=== PATIENT | male | born 1985 | race Caucasian/White ===

== ENCOUNTER 2017-01-23 22:54 | Inpatient (IN) | payer SELFPAY ==
[~2017-01-23] VITALS: Ht 162.6 cm; Wt 65.6 kg
[~2017-01-23 22:54] MED LIST: PROM6.257 PO; Z.0.NO CURRENT MEDS; [UNRECOGNIZED DRUG - CODE] PO
[2017-01-23 22:56] VITALS: BP 157/92; PULSE 97; RESP 16; TEMP 98; O2SAT 99
[2017-01-23] MEDS ORDERED: PRIL20CA9 PO (23:14)
[2017-01-23] MEDS ORDERED: ALPR1TAB3 PO (23:14)
[2017-01-23] MEDS ORDERED: SODIUM CHLORIDE 0.9% FLUSH 10 ML FLUSH IVF PRN (23:15)
[2017-01-23 23:34] LABS: AUTOMATED NEUTROPHIL # 17.6 TH/MM3 (1.8-7.7); BASOPHIL # 0.1 TH/MM3 (0-0.2); BASOPHIL % 0.3 % (0.0-2.0); EOSINOPHIL % 0.1 % (0.0-4.0); HEMATOCRIT 40.3 % (39.0-51.0); HEMO FLAGS DIFF FINAL; LYMPH % 4.3 % (9.0-44.0); LYMPHOCYTE # 0.8 TH/MM3 (1.0-4.8); MEAN CELL VOLUME 89.9 FL (80.0-100.0); MEAN CORPUSCULAR HEMOGLOBIN 31.9 PG (27.0-34.0); MEAN CORPUSCULAR HGB CONC 35.5 % (32.0-36.0); MONO % 4.7 % (0.0-8.0); NEUT % 90.6 % (16.0-70.0); PLATELET COUNT 261 TH/MM3 (150-450); RED BLOOD COUNT 4.48 MIL/MM3 (4.50-5.90); RED CELL DISTRIBUTION WIDTH 13.2 % (11.6-17.2); WHITE BLOOD COUNT 19.5 TH/MM3 (4.0-11.0)
[2017-01-23 23:43] LABS: APTT (PATIENT) 28.2 SEC (24.3-30.1); INTERNATIONAL NORMALIZED RATIO 0.9 RATIO; PROTHROMBIN TIME - PATIENT 10.4 SEC (9.8-11.6)
[2017-01-23 23:47] LABS: ALKALINE PHOSPHATASE 80 U/L (45-117); TOTAL BILIRUBIN ADULT 0.3 MG/DL (0.2-1.0)
[2017-01-23 23:52] LABS: ALT (GPT) 32 U/L (12-78); ANION GAP 9 MEQ/L (5-15); AST (GOT) 40 U/L (15-37); BICARBONATE 25.9 MEQ/L (21.0-32.0); BLOOD UREA NITROGEN 9 MG/DL (7-18); CHLORIDE 98 MEQ/L (98-107); GLOMERULAR FILTRATION RATE 133 ML/MIN (>89); POTASSIUM 3.9 MEQ/L (3.5-5.1); SODIUM (NA) 133 MEQ/L (136-145)
[2017-01-24] VITALS (7 sets, daily range): BP systolic 147–160; BP diastolic 83–97; PULSE 77–104; RESP 16–19; TEMP 98–99.7; O2SAT 93–99
--- NOTE | 2017-01-24 00:09 | RADRPT ---
EXAM DATE/TIME: 01/23/2017 23:32 [facility] COMPARISON: No previous studies available for comparison. INDICATIONS : Shortness of breath. MEDICAL HISTORY : None. SURGICAL HISTORY : None. ENCOUNTER: Initial ACUITY: 1 day PAIN SCORE: 0/10 LOCATION: Bilateral chest FINDINGS: A single view of the chest demonstrates the lungs to be symmetrically aerated without evidence of mas s, infiltrate or effusion. The cardiomediastinal contours are unremarkable. Osseous structures are intact. CONCLUSION: No acute disease. Nathen Rodney MD on January 24, 2017 at 0:07 Board Certified Radiologist. This report was verified electronically.
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
[2017-01-24] MEDS ORDERED: MORPHINE SULFATE 8 MG/ML INJ IV PUSH ONE (00:45)
[2017-01-24] MEDS ORDERED: LIDOCAINE HCL 2% 50 ML VIAL ONE (01:05)
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
[2017-01-24] MEDS ORDERED: ONDANSETRON HCL 4 MG/2 ML VIAL ONE (01:14)
[2017-01-24] MEDS ORDERED: MORPHINE SULFATE 4 MG/ML INJ IV PUSH PRN (01:45)
[2017-01-24] MEDS ORDERED: NALOXONE HCL 0.4 MG/ML AMP IV PRN (01:45)
[2017-01-24] MEDS ORDERED: ONDANSETRON HCL 4 MG/2 ML VIAL IVP PRN (01:45)
[2017-01-24] MEDS ORDERED: NEOMYCIN/POLYMYXIN 1 ML G.U. IRRIGANT TOPICAL ONE (02:05)
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
[2017-01-24] MEDS ORDERED: DO NOT ADM ANY ANTICOAGULANT DRUGS PRN (04:00)
[2017-01-24] MEDS ORDERED: *MEPERIDINE 25 MG INJ VIAL PERIprocedural Use ONLY ONE (04:06)
[2017-01-24] MEDS: SODIUM CHLOR 0.9% 1000 ML INJ 1,000 ML IV SCH ×2 (04:10→11:43)
[2017-01-24] MEDS ORDERED: MIDAZOLAM HCL 2 MG/2 ML VIAL ONE (04:12)
[2017-01-24] MEDS ORDERED: fentaNYL CITRATE 250 MCG/5 ML AMP ONE (04:13)
[2017-01-24] MEDS ORDERED: ONDANSETRON HCL 4 MG/2 ML VIAL IV PUSH ONE ×2 (04:15→12:00)
[2017-01-24] MEDS ORDERED: *morphine SULFATE 8 MG/ML PERIprocedure ONLY ONE (04:39)
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
[2017-01-24] MEDS: PANTOPRAZOLE SOD 20 MG DELAYED RELEASE TAB PO SCH ×2 (08:26→20:01)
[2017-01-24] MEDS: HYDROmorphone HCL PF 1 MG/ML VIAL IV PUSH PRN ×5 (08:26→23:19)
[2017-01-24] MEDS: SODIUM CHLORIDE 0.9% FLUSH 10 ML FLUSH IV FLUSH SCH ×2 (08:26→20:01)
--- NOTE | 2017-01-24 09:52 | PD.ORT.PN ---
Subjective Subjective Remarks Patient reports pain controlled. Denies paresthesias in recovery room Objective Vitals Vital Signs Date Time Temp Pulse Resp B/P Pulse Ox O2 Delivery O2 Flow Rate FiO2 01/24/17 08:38 Room Air 01/24/17 08:00 98.5 86 19 147/95 99 01/24/17 05:00 Nasal Cannula 2.00 01/24/17 05:00 98.0 94 16 158/97 99 01/24/17 04:45 102 16 167/94 95 Nasal Cannula 2 01/24/17 04:30 108 20 163/87 95 Room Air 01/24/17 04:15 101 20 170/89 98 Room Air 01/24/17 04:05 98.5 113 12 148/90 99 Nasal Cannula 2 01/23/17 23:22 100 Room Air 01/23/17 22:56 98.0 97 16 157/92 99 I/O 01/23/17 01/23/17 01/23/17 01/24/17 01/24/17 01/24/17 07:00 15:00 23:00 07:00 15:00 23:00 Intake Total 820 ml Output Total 65 ml Balance 755 ml Intake Oral 120 ml Other 700 ml Output Estimated Blood Loss 25 ml Other 40 ml # Voids 0 # Bowel Movements 0 Result Diagram: 01/23/17 2320 01/23/17 2320 Other Results Laboratory Tests Test 01/23/17 23:20 Prothrombin Time 10.4 SEC (9.8-11.6) Prothromb Time International 0.9 RATIO Ratio Imaging Last 24 hours Impressions Radius/Ulna X-Ray 01/24/17 0000 Signed Impressions: Service Date/Time: Tuesday, January 24, 2017 00:52 - CONCLUSION: Soft tissue gas with no acute fracture or malalignment in the forearm. Please see hand exam for further details. Nathen Rodney MD Chest X-Ray 01/23/17 2312 Signed Impressions: Service Date/Time: Monday, January 23, 2017 23:32 - CONCLUSION: No acute disease. Nathen Rodney MD Objective Remarks VAC holding suction, sitlt m/ur, 2+ radial pulse, dressing in place Assessment & Plan Assessment and Plan 31yM s/p concrete nail gun injury at home with impending compartment syndrome POD0 s/p I&D left hand, removal foreign body, fasciotomies left hand, carpal tunnel release, repair flexor tendon small finger and ring finger -VAC 125mmHg, plan to return to OR Sunday for repeat I&D possible VAC change, possible closure -NWB left hand, CT left wrist before sunday -will continue to follow closely Dee Brooks MD January 24, 2017 09:52
--- NOTE | 2017-01-24 10:26 | EKG ---
Date Performed: 01/23/2017 Time Performed: 23:17:39 PTAGE: 31 years EKG: Sinus rhythm WITH SINUS ARRHYTHMIA MODERATE INTRAVENTRICULAR CONDUCTION DELAY BORDERLINE ECG PREVIOUS TRACING : 10/10/2011 14.21 DOCTOR: Abhilash Castillo Interpretating Date/Time 01/24/2017 10:21:18
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
[2017-01-24] MEDS ORDERED: LACTATED RINGER'S 1000 ML INJ 1,000 ML IV ONE (12:00)
[2017-01-24] MEDS ORDERED: PROPOFOL 200 MG/20 ML AMP IV ONE (12:00)
[2017-01-24] MEDS ORDERED: ePHEDrine/NS 25 MG/5 ML SYR IV ONE (12:00)
[2017-01-24] MEDS: SODIUM CHLORIDE 0.9% FLUSH 10 ML FLUSH IV FLUSH PRN ×2 (12:51→16:31)
[2017-01-24] MEDS: ALPRAZolam 1 MG TAB PO PRN ×2 (14:30→21:03)
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
[2017-01-25] VITALS (7 sets, daily range): BP systolic 136–153; BP diastolic 79–91; PULSE 92–108; RESP 16–18; TEMP 95.6–99.6; O2SAT 95–99
[2017-01-25] MEDS ORDERED: HYDROmorphone HCL PF 1 MG/ML VIAL IV PUSH ONE (01:00)
[2017-01-25] MEDS: HYDROmorphone HCL PF 1 MG/ML VIAL IV PUSH PRN ×3 (04:00→15:48)
[2017-01-25] MEDS: ALPRAZolam 1 MG TAB PO PRN ×2 (04:05→15:45)
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
[2017-01-25 07:41] LABS: AUTOMATED NEUTROPHIL # 11.2 TH/MM3 (1.8-7.7); BASOPHIL # 0.1 TH/MM3 (0-0.2); BASOPHIL % 0.8 % (0.0-2.0); EOSINOPHIL % 0.3 % (0.0-4.0); HEMATOCRIT 44.4 % (39.0-51.0); LYMPH % 14.2 % (9.0-44.0); LYMPHOCYTE # 2.3 TH/MM3 (1.0-4.8); MEAN CELL VOLUME 92.4 FL (80.0-100.0); MEAN CORPUSCULAR HEMOGLOBIN 30.9 PG (27.0-34.0); MEAN CORPUSCULAR HGB CONC 33.4 % (32.0-36.0); MONO % 14.3 % (0.0-8.0); NEUT % 70.4 % (16.0-70.0); PLATELET COUNT 248 TH/MM3 (150-450); RED BLOOD COUNT 4.81 MIL/MM3 (4.50-5.90); RED CELL DISTRIBUTION WIDTH 13.7 % (11.6-17.2); WHITE BLOOD COUNT 15.9 TH/MM3 (4.0-11.0)
[2017-01-25] MEDS: SODIUM CHLOR 0.9% 1000 ML INJ 1,000 ML IV SCH ×3 (07:43→17:43)
[2017-01-25 07:46] LABS: HEMO FLAGS AUTO DIFF
[2017-01-25 07:58] LABS: BICARBONATE 30.3 MEQ/L (21.0-32.0); POTASSIUM 3.6 MEQ/L (3.5-5.1)
[2017-01-25] MEDS: PANTOPRAZOLE SOD 20 MG DELAYED RELEASE TAB PO SCH ×2 (08:18→22:27)
[2017-01-25 08:40] LABS: BANDS 3 % (0-6); NEUTROPHIL # MANUAL DIFF 11.3 TH/MM3 (1.8-7.7); POLYS (SEG NEUTROPHILS) 68 % (16-70); WBC DIFF SAMPLE 100
[2017-01-25 08:41] LABS: PLATELET ESTIMATE SMEAR NORMAL (NORMAL); PLATELET MORPHOLOGY NORMAL (NORMAL); SCAN/DIFF FINAL DIFF MANUAL
[2017-01-25] MEDS: SODIUM CHLORIDE 0.9% FLUSH 10 ML FLUSH IV FLUSH SCH ×2 (09:00→22:28)
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
[2017-01-25] MEDS: ceFAZolin 2 GM PREMIX 50 ML IV SCH ×2 (11:41→22:26)
[2017-01-26] MEDS: ceFAZolin 2 GM PREMIX 50 ML IV SCH ×3 (03:47→20:20)
[2017-01-26] MEDS: SODIUM CHLOR 0.9% 1000 ML INJ 1,000 ML IV SCH ×2 (03:55→13:43)
[2017-01-26 04:30] VITALS: BP 163/97; PULSE 105; RESP 16; TEMP 98; O2SAT 98
[2017-01-26] MEDS ORDERED: CHLORHEXIDINE GLUCONATE 2 % 1 PACK (2 CLOTHS) TOPICAL PRN (06:15)
[2017-01-26] MEDS ORDERED: INSULIN HUMAN REGULAR 1,000 UNITS/10 ML VIAL SQ PRN (06:15)
[2017-01-26] MEDS ORDERED: SODIUM CHLORID 0.9% 500 ML IV PRN (06:15)
[2017-01-26] MEDS ORDERED: LACTATED RINGER'S 1000 ML IV PRN (06:15)
[2017-01-26] MEDS ORDERED: POVIDONE IODINE 5% (ANTISEPSIS KIT) 4 APPLICATIONS EACH NARE PRN (06:15)
[2017-01-26 07:24] LABS: AUTOMATED NEUTROPHIL # 13.1 TH/MM3 (1.8-7.7); BASOPHIL # 0.1 TH/MM3 (0-0.2); BASOPHIL % 0.5 % (0.0-2.0); EOSINOPHIL # 0.1 TH/MM3 (0-0.4); EOSINOPHIL % 0.8 % (0.0-4.0); HEMATOCRIT 46.4 % (39.0-51.0); HEMO FLAGS DIFF FINAL; LYMPH % 10.2 % (9.0-44.0); LYMPHOCYTE # 1.7 TH/MM3 (1.0-4.8); MEAN CELL VOLUME 91.8 FL (80.0-100.0); MEAN CORPUSCULAR HEMOGLOBIN 30.6 PG (27.0-34.0); MEAN CORPUSCULAR HGB CONC 33.4 % (32.0-36.0); MONO % 12.1 % (0.0-8.0); NEUT % 76.4 % (16.0-70.0); PLATELET COUNT 263 TH/MM3 (150-450); RED BLOOD COUNT 5.05 MIL/MM3 (4.50-5.90); RED CELL DISTRIBUTION WIDTH 13.3 % (11.6-17.2); WHITE BLOOD COUNT 17.1 TH/MM3 (4.0-11.0)
[2017-01-26 07:57] VITALS: BP 132/83; PULSE 98; RESP 16; TEMP 98.4; O2SAT 98
[2017-01-26] MEDS: PANTOPRAZOLE SOD 20 MG DELAYED RELEASE TAB PO SCH ×2 (08:46→20:19)
[2017-01-26] MEDS: SODIUM CHLORIDE 0.9% FLUSH 10 ML FLUSH IV FLUSH SCH ×2 (09:00→20:20)
[2017-01-26] MEDS ORDERED: PROPOFOL 200 MG/20 ML AMP IV ONE (12:00)
[2017-01-26] MEDS ORDERED: KETOROLAC TROMETHAMINE 60 MG/2 ML (IM) VIAL IM ONE (12:00)
[2017-01-26] MEDS ORDERED: ONDANSETRON HCL 4 MG/2 ML VIAL IV PUSH ONE (12:00)
[2017-01-26 12:35] VITALS: BP 136/79; PULSE 91; RESP 18; TEMP 98.3; O2SAT 98
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
[2017-01-26] MEDS ORDERED: fentaNYL CITRATE 250 MCG/5 ML AMP ONE (14:49)
[2017-01-26] MEDS ORDERED: FAMOTIDINE 20 MG/2 ML VIAL ONE (14:54)
[2017-01-26] MEDS ORDERED: LIDOCAINE HCL 2% 50 ML VIAL ONE (14:55)
[2017-01-26] MEDS ORDERED: MIDAZOLAM HCL 2 MG/2 ML VIAL ONE (14:58)
[2017-01-26] MEDS ORDERED: DEXAMETHASONE SOD PHOS 4 MG/ML VIAL ONE (14:58)
[2017-01-26] MEDS ORDERED: DO NOT ADM ANY ANTICOAGULANT DRUGS PRN (16:48)
[2017-01-26] MEDS ORDERED: *MEPERIDINE 25 MG INJ VIAL PERIprocedural Use ONLY ONE (16:48)
--- NOTE | 2017-01-26 16:57 | PD.ORT.PN ---
Subjective Subjective Remarks Patient reports pain controlled. Denies paresthesias in recovery room Objective Vitals Vital Signs Date Time Temp Pulse Resp B/P Pulse Ox O2 Delivery O2 Flow Rate FiO2 01/26/17 12:35 98.3 91 18 136/79 98 01/26/17 07:57 98.4 98 16 132/83 98 01/26/17 05:49 18 01/26/17 04:30 98.0 105 16 163/97 98 01/26/17 01:32 Room Air 01/25/17 23:30 98.1 93 16 140/91 98 01/25/17 20:15 99.3 108 17 138/90 99 I/O 01/25/17 01/25/17 01/25/17 01/26/17 01/26/17 01/26/17 07:00 15:00 23:00 07:00 15:00 23:00 Intake Total 480 ml 860 ml 480 ml 125 ml 0 ml Output Total 650 ml 25 ml 25 ml Balance -170 ml 860 ml 455 ml 100 ml 0 ml Intake Oral 480 ml 860 ml 480 ml 0 ml 0 ml IV Total 125 ml Output Urine Total 650 ml Drainage Total 25 ml 25 ml # Voids 5 2 2 4 # Bowel Movements 0 0 Result Diagram: 01/26/17 0655 01/25/17 0713 Imaging Last 24 hours Impressions Radius/Ulna X-Ray 01/24/17 0000 Signed Impressions: Service Date/Time: Tuesday, January 24, 2017 00:52 - CONCLUSION: Soft tissue gas with no acute fracture or malalignment in the forearm. Please see hand exam for further details. Nathen Rodney MD Chest X-Ray 01/23/17 231 Signed Impressions: Service Date/Time: Monday, January 23, 2017 23:32 - CONCLUSION: No acute disease. Nathen Rodney MD Objective Remarks VAC holding suction, dorsal blocking splint in place, sitlt m/ur, 2+ radial pulse, dressing in place Assessment & Plan Assessment and Plan 31yM s/p concrete nail gun injury at home with impending compartment syndrome POD2 s/p I&D left hand, removal foreign body, fasciotomies left hand, carpal tunnel release, repair flexor tendon small finger and ring finger -POD0 s/p repeat I&D, partial closure volar wound, repeat VAC to dorsal wound and partial volar wound -VAC 125mmHg, plan to return to OR Sunday for repeat I&D possible VAC change, possible closure, possible skin graft -NWB left hand, elevate left hand to IV pole as much as possible with NO ROM ring and small fingers -will continue to follow closely Dee Brooks MD January 26, 2017 16:57
[2017-01-26] MEDS ORDERED: *morphine SULFATE 8 MG/ML PERIprocedure ONLY ONE (17:21)
[2017-01-26] MEDS: ALPRAZolam 1 MG TAB PO PRN (17:45)
[2017-01-26] MEDS: HYDROmorphone HCL PF 1 MG/ML VIAL IV PUSH PRN ×2 (18:15→21:54)
[2017-01-26 19:00] VITALS: BP_SYST 130; BP_SYST 136; BP_DIAS 62; BP_DIAS 88; PULSE 110; PULSE 61; RESP 17; TEMP 96.3; TEMP 98.6; O2SAT 100; O2SAT 96
[2017-01-26 23:48] VITALS: BP 120/75; PULSE 81; RESP 16; TEMP 96; O2SAT 96
[2017-01-27] MEDS: ceFAZolin 2 GM PREMIX 50 ML IV SCH ×3 (04:31→20:12)
[2017-01-27 08:00] VITALS: BP 143/76; PULSE 78; RESP 18; TEMP 97.5; O2SAT 98
[2017-01-27 08:45] VITALS: O2SAT 98
[2017-01-27] MEDS: ALPRAZolam 1 MG TAB PO PRN ×2 (10:06→23:09)
[2017-01-27] MEDS: PANTOPRAZOLE SOD 20 MG DELAYED RELEASE TAB PO SCH ×2 (10:06→20:11)
[2017-01-27] MEDS: HYDROmorphone HCL PF 1 MG/ML VIAL IV PUSH PRN ×3 (10:07→20:21)
[2017-01-27] MEDS: SODIUM CHLORIDE 0.9% FLUSH 10 ML FLUSH IV FLUSH SCH ×2 (10:17→20:12)
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
[2017-01-27] MEDS: SODIUM CHLOR 0.9% 1000 ML INJ 1,000 ML IV SCH ×2 (11:40→19:43)
[2017-01-27 12:00] VITALS: BP 124/58; PULSE 69; RESP 18; TEMP 97.4; O2SAT 98
[2017-01-27] MEDS: SODIUM CHLORIDE 0.9% FLUSH 10 ML FLUSH IV FLUSH PRN (14:29)
[2017-01-27 16:00] VITALS: BP 148/82; PULSE 75; RESP 18; TEMP 96.4; O2SAT 100
[2017-01-27 20:00] VITALS: BP 139/75; PULSE 95; RESP 20; TEMP 97.7; O2SAT 100
[2017-01-28] VITALS: BP 121/85; PULSE 97; RESP 22; TEMP 98.1; O2SAT 100
[2017-01-28 04:00] VITALS: BP 141/88; PULSE 67; RESP 18; TEMP 96.5; O2SAT 100
[2017-01-28] MEDS: ceFAZolin 2 GM PREMIX 50 ML IV SCH ×3 (04:02→20:20)
[2017-01-28] MEDS: HYDROmorphone HCL PF 1 MG/ML VIAL IV PUSH PRN ×5 (04:12→22:28)
[2017-01-28] MEDS: SODIUM CHLOR 0.9% 1000 ML INJ 1,000 ML IV SCH ×2 (05:04→15:43)
[2017-01-28] MEDS: ALPRAZolam 1 MG TAB PO PRN ×3 (05:26→20:26)
[2017-01-28 06:46] LABS: AUTOMATED NEUTROPHIL # 7.3 TH/MM3 (1.8-7.7); BASOPHIL # 0.1 TH/MM3 (0-0.2); BASOPHIL % 0.5 % (0.0-2.0); EOSINOPHIL # 0.3 TH/MM3 (0-0.4); EOSINOPHIL % 2.1 % (0.0-4.0); HEMATOCRIT 40.9 % (39.0-51.0); HEMO FLAGS DIFF FINAL; LYMPH % 27.4 % (9.0-44.0); LYMPHOCYTE # 3.3 TH/MM3 (1.0-4.8); MEAN CELL VOLUME 91.4 FL (80.0-100.0); MEAN CORPUSCULAR HEMOGLOBIN 30.4 PG (27.0-34.0); MEAN CORPUSCULAR HGB CONC 33.3 % (32.0-36.0); MONO % 9.5 % (0.0-8.0); NEUT % 60.5 % (16.0-70.0); PLATELET COUNT 309 TH/MM3 (150-450); RED BLOOD COUNT 4.48 MIL/MM3 (4.50-5.90); RED CELL DISTRIBUTION WIDTH 13.2 % (11.6-17.2)
[2017-01-28 08:00] VITALS: BP 125/71; PULSE 74; RESP 18; TEMP 96.5; O2SAT 97
[2017-01-28] MEDS: PANTOPRAZOLE SOD 20 MG DELAYED RELEASE TAB PO SCH ×2 (08:44→20:26)
[2017-01-28] MEDS: SODIUM CHLORIDE 0.9% FLUSH 10 ML FLUSH IV FLUSH SCH ×2 (08:45→20:27)
[2017-01-28 12:00] VITALS: BP 136/78; PULSE 72; RESP 19; TEMP 97.6; O2SAT 100
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
[2017-01-28 16:00] VITALS: BP 138/83; PULSE 72; RESP 18; TEMP 97.8; O2SAT 100
[2017-01-28 20:00] VITALS: BP 126/74; PULSE 76; RESP 18; TEMP 96.4; O2SAT 100
[2017-01-29] VITALS: BP 136/74; PULSE 81; RESP 20; TEMP 96.6; O2SAT 100
[2017-01-29] MEDS: SODIUM CHLOR 0.9% 1000 ML INJ 1,000 ML IV SCH ×3 (01:43→19:38)
[2017-01-29] MEDS: HYDROmorphone HCL PF 1 MG/ML VIAL IV PUSH PRN ×6 (03:13→22:55)
[2017-01-29 04:00] VITALS: BP 127/72; PULSE 73; RESP 18; TEMP 96.9; O2SAT 99
[2017-01-29] MEDS: ceFAZolin 2 GM PREMIX 50 ML IV SCH ×3 (04:29→19:38)
[2017-01-29 07:02] VITALS: BP 113/88; PULSE 70; RESP 17; TEMP 97.3; O2SAT 99
[2017-01-29] MEDS: PANTOPRAZOLE SOD 20 MG DELAYED RELEASE TAB PO SCH ×2 (07:31→19:38)
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
[2017-01-29] MEDS: SODIUM CHLORIDE 0.9% FLUSH 10 ML FLUSH IV FLUSH SCH ×2 (09:00→19:38)
[2017-01-29 11:20] VITALS: BP 134/77; PULSE 79; RESP 17; TEMP 97.4; O2SAT 99
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
[2017-01-29 15:43] VITALS: BP 133/69; PULSE 77; RESP 17; TEMP 95.7; O2SAT 98
[2017-01-29] MEDS: ALPRAZolam 1 MG TAB PO PRN (18:44)
[2017-01-29 20:00] VITALS: BP 128/83; PULSE 93; RESP 16; TEMP 97.6; O2SAT 99
[2017-01-30] VITALS: BP 151/86; PULSE 82; RESP 17; TEMP 98.6; O2SAT 99
[2017-01-30] MEDS ORDERED: INSULIN HUMAN REGULAR 1,000 UNITS/10 ML VIAL SQ PRN (00:30)
[2017-01-30] MEDS ORDERED: POVIDONE IODINE 5% (ANTISEPSIS KIT) 4 APPLICATIONS EACH NARE PRN (00:30)
[2017-01-30] MEDS ORDERED: LACTATED RINGER'S 1000 ML IV PRN (00:30)
[2017-01-30] MEDS ORDERED: METOPROLOL TARTRATE 25 MG TAB PO PRN (00:30)
[2017-01-30] MEDS ORDERED: CHLORHEXIDINE GLUCONATE 2 % 1 PACK (2 CLOTHS) TOPICAL PRN (00:30)
[2017-01-30] MEDS ORDERED: SODIUM CHLORID 0.9% 500 ML IV PRN (00:30)
[2017-01-30] MEDS: HYDROmorphone HCL PF 1 MG/ML VIAL IV PUSH PRN ×6 (01:31→23:48)
[2017-01-30 04:00] VITALS: BP 131/81; PULSE 64; RESP 16; TEMP 97.2; O2SAT 97
[2017-01-30] MEDS: ceFAZolin 2 GM PREMIX 50 ML IV SCH ×3 (04:53→19:49)
[2017-01-30] MEDS: SODIUM CHLOR 0.9% 1000 ML INJ 1,000 ML IV SCH ×2 (04:54→17:43)
[2017-01-30] MEDS ORDERED: PROPOFOL 200 MG/20 ML AMP IV ONE (07:37)
[2017-01-30] MEDS ORDERED: KETOROLAC TROMETHAMINE 60 MG/2 ML (IM) VIAL IM ONE (07:37)
[2017-01-30] MEDS ORDERED: ONDANSETRON HCL 4 MG/2 ML VIAL IV PUSH ONE (07:37)
[2017-01-30 08:00] VITALS: BP 131/90; PULSE 77; RESP 18; TEMP 98.7; O2SAT 99
[2017-01-30] MEDS: SODIUM CHLORIDE 0.9% FLUSH 10 ML FLUSH IV FLUSH SCH ×2 (08:19→19:49)
[2017-01-30] MEDS: PANTOPRAZOLE SOD 20 MG DELAYED RELEASE TAB PO SCH ×2 (08:21→19:49)
[2017-01-30] MEDS ORDERED: GENTAMICIN SULFATE 80 MG/2 ML VIAL ONE (08:21)
[2017-01-30] MEDS ORDERED: LIDOCAINE HCL 2% 50 ML VIAL ONE (08:21)
[2017-01-30] MEDS ORDERED: fentaNYL CITRATE 250 MCG/5 ML AMP ONE (09:11)
[2017-01-30] MEDS ORDERED: FAMOTIDINE 20 MG/2 ML VIAL ONE (09:11)
[2017-01-30] MEDS ORDERED: MIDAZOLAM HCL 2 MG/2 ML VIAL ONE (09:11)
[2017-01-30] MEDS ORDERED: NEOMYCIN/POLYMYXIN 1 ML G.U. IRRIGANT TOPICAL ONE (10:20)
[2017-01-30] MEDS ORDERED: DO NOT ADM ANY ANTICOAGULANT DRUGS PRN (11:18)
[2017-01-30] MEDS ORDERED: *MEPERIDINE 25 MG INJ VIAL PERIprocedural Use ONLY ONE (11:19)
[2017-01-30] MEDS ORDERED: *HYDROmorphone PF 1 MG VIAL PERIprocedural Use ONLY ONE (11:26)
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
[2017-01-30 11:50] VITALS: BP 146/87; PULSE 83; RESP 18; TEMP 97; O2SAT 96
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
[2017-01-30] MEDS ORDERED: PILL SPLITTER OTHER PRN (15:45)
[2017-01-30 16:00] VITALS: BP 142/72; PULSE 78; RESP 19; TEMP 98.5; O2SAT 97
[2017-01-30] MEDS: ALPRAZolam 1 MG TAB PO PRN (17:33)
[2017-01-30 20:00] VITALS: BP 145/78; PULSE 93; RESP 16; TEMP 97.8; O2SAT 99
[2017-01-31] VITALS (7 sets, daily range): BP systolic 125–148; BP diastolic 62–79; PULSE 60–99; RESP 16–18; TEMP 96.8–99; O2SAT 97–100
[2017-01-31] MEDS: SODIUM CHLOR 0.9% 1000 ML INJ 1,000 ML IV SCH ×3 (01:37→23:43)
[2017-01-31] MEDS: ceFAZolin 2 GM PREMIX 50 ML IV SCH ×3 (04:36→19:47)
[2017-01-31 07:00] LABS: AUTOMATED NEUTROPHIL # 14.3 TH/MM3 (1.8-7.7); BASOPHIL # 0.1 TH/MM3 (0-0.2); BASOPHIL % 0.6 % (0.0-2.0); EOSINOPHIL # 0.1 TH/MM3 (0-0.4); EOSINOPHIL % 0.8 % (0.0-4.0); HEMATOCRIT 40.4 % (39.0-51.0); HEMO FLAGS DIFF FINAL; LYMPH % 11.7 % (9.0-44.0); LYMPHOCYTE # 2.1 TH/MM3 (1.0-4.8); MEAN CELL VOLUME 91.1 FL (80.0-100.0); MEAN CORPUSCULAR HEMOGLOBIN 30.7 PG (27.0-34.0); MEAN CORPUSCULAR HGB CONC 33.7 % (32.0-36.0); MONO % 7.6 % (0.0-8.0); NEUT % 79.3 % (16.0-70.0); PLATELET COUNT 362 TH/MM3 (150-450); RED BLOOD COUNT 4.43 MIL/MM3 (4.50-5.90); RED CELL DISTRIBUTION WIDTH 12.8 % (11.6-17.2)
[2017-01-31] MEDS: PANTOPRAZOLE SOD 20 MG DELAYED RELEASE TAB PO SCH ×2 (09:07→19:47)
[2017-01-31] MEDS: HYDROmorphone HCL PF 1 MG/ML VIAL IV PUSH PRN ×4 (09:08→19:48)
[2017-01-31] MEDS: SODIUM CHLORIDE 0.9% FLUSH 10 ML FLUSH IV FLUSH SCH ×2 (09:12→19:48)
[2017-01-31] MEDS: ALPRAZolam 1 MG TAB PO PRN (12:09)
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
--- NOTE | 2017-01-31 17:32 | HHI.PR ---
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 complains of mild pain no numbness complaint with the vac Objective Vital Signs Date Time Temp Pulse Resp B/P Pulse Ox O2 Delivery O2 Flow Rate FiO2 01/31/17 16:00 99.0 99 18 148/76 100 01/31/17 13:52 97 21 01/31/17 12:00 97.1 78 18 138/62 100 01/31/17 08:00 97.2 60 18 140/70 98 01/31/17 04:00 97.4 62 16 125/64 98 01/31/17 00:00 97.4 68 17 133/67 99 01/30/17 21:26 21 01/30/17 20:00 97.8 93 16 145/78 99 I/O 01/30/17 01/30/17 01/30/17 01/31/17 01/31/17 01/31/17 07:00 15:00 23:00 07:00 15:00 23:00 Intake Total 253 ml 800 ml 1505 ml 785 ml 720 ml Output Total 0 ml 20 ml 0 ml Balance 253 ml 780 ml 1505 ml 785 ml 720 ml Intake Oral 0 ml 1440 ml 720 ml 720 ml IV Total 253 ml 65 ml 65 ml Other 800 ml Drainage Total 0 ml 0 ml Estimated Blood Loss 20 ml # Voids 2 5 2 2 # Bowel Movements 0 0 examination of left hand: Vac in place, working intact distal sensation good flexor tone to the fingers Result Diagram: 01/31/17 0602 Assessment and Plan Assessment and Plan Plan: patient consented for I and D, debridement, possible closure, possible vac change left hand on 02/01/17 npo after midnight continue with vac Braeden Ward MD January 31, 2017 17:32
[2017-02-01 00:45] VITALS: BP 114/71; PULSE 60; RESP 17; TEMP 96.9; O2SAT 100
[2017-02-01] MEDS: HYDROmorphone HCL PF 1 MG/ML VIAL IV PUSH PRN ×5 (02:32→19:42)
[2017-02-01] MEDS: ceFAZolin 2 GM PREMIX 50 ML IV SCH ×4 (04:32→19:42)
[2017-02-01 04:45] VITALS: BP 126/72; PULSE 70; RESP 17; TEMP 96.7; O2SAT 99
[2017-02-01 06:27] LABS: AUTOMATED NEUTROPHIL # 7.5 TH/MM3 (1.8-7.7); BASOPHIL # 0.1 TH/MM3 (0-0.2); EOSINOPHIL # 0.3 TH/MM3 (0-0.4); EOSINOPHIL % 2.1 % (0.0-4.0); HEMATOCRIT 39.7 % (39.0-51.0); HEMO FLAGS DIFF FINAL; LYMPH % 27.8 % (9.0-44.0); LYMPHOCYTE # 3.4 TH/MM3 (1.0-4.8); MEAN CELL VOLUME 91.2 FL (80.0-100.0); MEAN CORPUSCULAR HEMOGLOBIN 30.9 PG (27.0-34.0); MEAN CORPUSCULAR HGB CONC 33.9 % (32.0-36.0); MONO % 8.8 % (0.0-8.0); NEUT % 60.3 % (16.0-70.0); PLATELET COUNT 363 TH/MM3 (150-450); RED BLOOD COUNT 4.35 MIL/MM3 (4.50-5.90); RED CELL DISTRIBUTION WIDTH 12.9 % (11.6-17.2); WHITE BLOOD COUNT 12.4 TH/MM3 (4.0-11.0)
[2017-02-01 08:00] VITALS: BP 122/66; PULSE 65; RESP 18; TEMP 96.7; O2SAT 100
[2017-02-01] MEDS: SODIUM CHLORIDE 0.9% FLUSH 10 ML FLUSH IV FLUSH SCH ×2 (08:07→19:42)
[2017-02-01] MEDS: PANTOPRAZOLE SOD 20 MG DELAYED RELEASE TAB PO SCH ×2 (08:07→19:42)
[2017-02-01] MEDS: SODIUM CHLOR 0.9% 1000 ML INJ 1,000 ML IV SCH ×2 (09:43→19:42)
[2017-02-01] MEDS: ALPRAZolam 1 MG TAB PO PRN (11:21)
[2017-02-01 12:00] VITALS: BP 140/85; PULSE 65; RESP 18; TEMP 97.3; O2SAT 100
[2017-02-01] MEDS ORDERED: PROPOFOL 200 MG/20 ML AMP IV ONE (12:00)
[2017-02-01] MEDS ORDERED: ONDANSETRON HCL 4 MG/2 ML VIAL IV PUSH ONE (12:00)
[2017-02-01] MEDS: SODIUM CHLORIDE 0.9% FLUSH 10 ML FLUSH IV FLUSH PRN (12:24)
[2017-02-01] MEDS ORDERED: LIDOCAINE HCL 2% 50 ML VIAL ONE (13:09)
[2017-02-01] MEDS ORDERED: BUPIVACAINE HCL PF 0.5% 30 ML VIAL ONE (13:09)
[2017-02-01] MEDS ORDERED: MUPIROCIN 2% OINT 22 GM TUBE ONE (13:09)
[2017-02-01] MEDS ORDERED: fentaNYL CITRATE 250 MCG/5 ML AMP ONE (13:12)
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
[2017-02-01] MEDS ORDERED: MIDAZOLAM HCL 2 MG/2 ML VIAL ONE (13:41)
[2017-02-01] MEDS ORDERED: FAMOTIDINE 20 MG/2 ML VIAL ONE (13:41)
[2017-02-01] MEDS ORDERED: NEOMYCIN/POLYMYXIN 1 ML G.U. IRRIGANT TOPICAL ONE (14:22)
[2017-02-01] MEDS ORDERED: DO NOT ADM ANY ANTICOAGULANT DRUGS PRN (14:55)
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
[2017-02-01] MEDS ORDERED: *MEPERIDINE 25 MG INJ VIAL PERIprocedural Use ONLY ONE (15:01)
[2017-02-01] MEDS ORDERED: *morphine SULFATE 8 MG/ML PERIprocedure ONLY ONE (15:08)
[2017-02-01 16:00] VITALS: BP 148/73; PULSE 84; RESP 18; TEMP 96.9; O2SAT 99
[2017-02-01 19:00] VITALS: BP 121/69; PULSE 76; RESP 16; TEMP 96.3; O2SAT 98
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
[2017-02-02] VITALS (7 sets, daily range): BP systolic 114–159; BP diastolic 71–85; PULSE 61–98; RESP 17–19; TEMP 96.8–98.2; O2SAT 96–100
[2017-02-02] MEDS: SODIUM CHLOR 0.9% 1000 ML INJ 1,000 ML IV SCH ×2 (03:09→15:43)
[2017-02-02] MEDS: ceFAZolin 2 GM PREMIX 50 ML IV SCH ×3 (04:26→19:42)
[2017-02-02] MEDS: HYDROmorphone HCL PF 1 MG/ML VIAL IV PUSH PRN ×3 (05:20→17:36)
[2017-02-02] MEDS: PANTOPRAZOLE SOD 20 MG DELAYED RELEASE TAB PO SCH ×2 (08:53→19:42)
[2017-02-02] MEDS: SODIUM CHLORIDE 0.9% FLUSH 10 ML FLUSH IV FLUSH SCH ×2 (08:53→19:43)
[2017-02-02] MEDS: ALPRAZolam 1 MG TAB PO PRN (12:47)
--- NOTE | 2017-02-02 15:09 | HHI.PR ---
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 complains of mild pain no numbness complaint with the dressing and splint Objective Vital Signs Date Time Temp Pulse Resp B/P Pulse Ox O2 Delivery O2 Flow Rate FiO2 02/02/17 12:00 96.8 76 19 139/85 100 02/02/17 08:00 96.8 79 18 136/80 100 02/02/17 04:00 97.0 61 17 141/74 99 02/02/17 00:00 97.9 63 17 114/71 99 02/01/17 19:00 96.3 76 16 121/69 98 02/01/17 16:00 96.9 84 18 148/73 99 02/01/17 15:21 66 18 154/94 99 Room Air 02/01/17 15:10 64 18 152/91 99 Room Air I/O 02/01/17 02/01/17 02/01/17 02/02/17 02/02/17 02/02/17 07:00 15:00 23:00 07:00 15:00 23:00 Intake Total 65 ml 500 ml 545 ml 545 ml 50 ml Output Total 0 ml 10 ml 0 ml Balance 65 ml 490 ml 545 ml 545 ml 50 ml Intake Oral 480 ml 480 ml IV Total 65 ml 65 ml 65 ml 50 ml Other 500 ml Output Urine Total 0 ml Drainage Total 0 ml Estimated Blood Loss 10 ml Other 0 ml # Voids 2 4 3 3 # Bowel Movements 0 1 0 0 left hand: dressing and splint in place intact distal circulation and sensation Result Diagram: 02/01/17 0542 Assessment and Plan Assessment and Plan Plan: patient consented for debridement, possible closure left hand/wrist on 02/03/17 npo after midnight Braeden Ward MD February 02, 2017 15:09
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
[2017-02-03] VITALS (7 sets, daily range): BP systolic 120–138; BP diastolic 68–86; PULSE 67–90; RESP 17–18; TEMP 96.9–97.6; O2SAT 98–100
[2017-02-03] MEDS: SODIUM CHLOR 0.9% 1000 ML INJ 1,000 ML IV SCH ×2 (01:43→11:43)
[2017-02-03] MEDS: ceFAZolin 2 GM PREMIX 50 ML IV SCH ×3 (04:36→19:40)
[2017-02-03 07:00] LABS: HEMATOCRIT 43.6 % (39.0-51.0); MEAN CELL VOLUME 90.3 FL (80.0-100.0); MEAN CORPUSCULAR HEMOGLOBIN 31.1 PG (27.0-34.0); MEAN CORPUSCULAR HGB CONC 34.5 % (32.0-36.0); PLATELET COUNT 426 TH/MM3 (150-450); RED BLOOD COUNT 4.83 MIL/MM3 (4.50-5.90); RED CELL DISTRIBUTION WIDTH 13.1 % (11.6-17.2); REVIEW FLAG FINAL
[2017-02-03 07:28] LABS: BICARBONATE 30.7 MEQ/L (21.0-32.0)
[2017-02-03] MEDS: HYDROmorphone HCL PF 1 MG/ML VIAL IV PUSH PRN ×3 (08:14→19:41)
[2017-02-03] MEDS: SODIUM CHLORIDE 0.9% FLUSH 10 ML FLUSH IV FLUSH SCH ×2 (08:17→19:41)
[2017-02-03] MEDS: PANTOPRAZOLE SOD 20 MG DELAYED RELEASE TAB PO SCH ×2 (08:18→19:40)
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
[2017-02-03] MEDS ORDERED: ONDANSETRON HCL 4 MG/2 ML VIAL IV PUSH ONE (11:33)
[2017-02-03] MEDS ORDERED: PROPOFOL 200 MG/20 ML AMP IV ONE (11:33)
[2017-02-03] MEDS ORDERED: BUPIVACAINE HCL PF 0.5% 30 ML VIAL ONE (16:31)
[2017-02-03] MEDS ORDERED: MUPIROCIN 2% OINT 22 GM TUBE ONE (16:32)
[2017-02-03] MEDS ORDERED: LIDOCAINE HCL 2% 50 ML VIAL ONE (16:32)
[2017-02-03] MEDS ORDERED: NEOMYCIN/POLYMYXIN 1 ML G.U. IRRIGANT IR ONE (17:20)
[2017-02-03] MEDS ORDERED: fentaNYL CITRATE 250 MCG/5 ML AMP ONE (17:29)
[2017-02-03] MEDS ORDERED: *HYDROmorphone PF 1 MG VIAL PERIprocedural Use ONLY ONE (18:12)
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
[2017-02-03] MEDS ORDERED: DO NOT ADM ANY ANTICOAGULANT DRUGS PRN (19:00)
[2017-02-03] MEDS: ALPRAZolam 1 MG TAB PO PRN (19:40)
[2017-02-03] MEDS ORDERED: MAGNESIUM HYDROXIDE SUSP 30 ML CUP PO PRN (20:15)
[2017-02-04 00:10] VITALS: BP 129/73; PULSE 75; RESP 17; TEMP 97.2; O2SAT 98
[2017-02-04 04:10] VITALS: BP 122/71; PULSE 75; RESP 17; TEMP 97.5; O2SAT 99
[2017-02-04] MEDS: ceFAZolin 2 GM PREMIX 50 ML IV SCH ×2 (04:37→12:00)
[2017-02-04] MEDS: PANTOPRAZOLE SOD 20 MG DELAYED RELEASE TAB PO SCH (07:54)
[2017-02-04 08:00] VITALS: BP 129/81; PULSE 73; RESP 16; TEMP 97; O2SAT 100
[2017-02-04] MEDS: HYDROmorphone HCL PF 1 MG/ML VIAL IV PUSH PRN (08:00)
[2017-02-04] MEDS ORDERED: OXYC-392 PO (11:50)
[2017-02-04 12:00] VITALS: BP 106/84; PULSE 86; RESP 16; TEMP 97.3; O2SAT 99
[2017-02-04] MEDS ORDERED: CEPH-459 PO (12:20)
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
[2017-02-04] MEDS: ALPRAZolam 1 MG TAB PO PRN (14:08)
== END 2017-02-04 15:00 | disposition home or self-care (01) | DRG 464 ==
LOC: NEPC 22:54 → NEDA 01-24 01:34 → N06B 01-24 05:25
PROVIDERS: ADMIT Family Medicine; ATTEND Family Medicine
PROC: 0PBQ0ZZ Excision of Left Metacarpal, Open Approach (ICD-10-PCS; 2017-01-24)
PROC: 0KND0ZZ Release Left Hand Muscle, Open Approach (ICD-10-PCS; 2017-01-24)
PROC: 0LM80ZZ Reattachment of Left Hand Tendon, Open Approach (ICD-10-PCS; 2017-01-24)
PROC: 0KQC0ZZ Repair Right Hand Muscle, Open Approach (ICD-10-PCS; 2017-01-24)
PROC: 0JCK0ZZ Extirpation of Matter from Left Hand Subcutaneous Tissue and Fascia, Open Approach (ICD-10-PCS; 2017-01-24)
PROC: 01N50ZZ Release Median Nerve, Open Approach (ICD-10-PCS; 2017-01-24 01:43)
PROC: 0JDK0ZZ Extraction of Left Hand Subcutaneous Tissue and Fascia, Open Approach (ICD-10-PCS; 2017-01-26)
PROC: 2W0 Placement, Anatomical Regions, Change (ICD-10-PCS; 2017-01-26)
PROC: 0JCK0ZZ Extirpation of Matter from Left Hand Subcutaneous Tissue and Fascia, Open Approach (ICD-10-PCS; 2017-01-26)
PROC: 0JDK0ZZ Extraction of Left Hand Subcutaneous Tissue and Fascia, Open Approach (ICD-10-PCS; 2017-01-30)
PROC: 0JBK0ZZ Excision of Left Hand Subcutaneous Tissue and Fascia, Open Approach (ICD-10-PCS; 2017-02-01)
PROC: 0HBGXZZ Excision of Left Hand Skin, External Approach (ICD-10-PCS; principal; 2017-02-03 17:04)
DX: S62.315B Displaced fracture of base of fourth metacarpal bone, left hand, initial encounter for open fracture (principal); S66.125A Laceration of flexor muscle, fascia and tendon of left ring finger at wrist and hand level, initial encounter; T79.A12A Traumatic compartment syndrome of left upper extremity, initial encounter; S62.142B Displaced fracture of body of hamate [unciform] bone, left wrist, initial encounter for open fracture; S66.127A Laceration of flexor muscle, fascia and tendon of left little finger at wrist and hand level, initial encounter; D72.829 Elevated white blood cell count, unspecified; K21.9 Gastro-esophageal reflux disease without esophagitis; F17.210 Nicotine dependence, cigarettes, uncomplicated; F41.9 Anxiety disorder, unspecified; W29.4XXA Contact with nail gun, initial encounter; Y92.009 Unspecified place in unspecified non-institutional (private) residence as the place of occurrence of the external cause; Z87.11 Personal history of peptic ulcer disease; Z88.5 Allergy status to narcotic agent
CPT/HCPCS: 71010; 73090; 73130; 73200; 76000; 80048; 80053; 85007; 85025; 85027; 85610; 85730; 86403; 87070; 87205; 88300; 88305; 88311; 93005; 96374; 96375; J0690; J1100; J1170; J1580; J1885; J2175; J2250; J2270; J2405; J3010; J7030; J7120